=== PATIENT | male | born 1960 | race Caucasian/White ===

== ENCOUNTER → 2018-08-30 22:10 | Outpatient (CLI) | payer MEDICARE, SELFPAY ==
[2018-08-30 22:32] LABS: Microscopic, Urine URINE MICROSCOPIC (MICROSCOPIC)
[2018-08-30 22:36] LABS: Bilirubin,Urine Negative (Negative); Blood, Urine TRACE-I (Negative); Color,Urine YELLOW (Yellow); Glucose,Urine (UA) Negative (Negative); Ketones,Urine Negative (Negative); Leukocyte Esterase,Urine Negative (Negative); Nitrate,Urine Negative (Negative); PH,Urine 5.5 (5.0-8.5); Protein,Urine TRACE (Negative); Specific Gravity, Urine >= 1.030 (1.005-1.030); Urobilinogen,Urine 0.2 EU/dl (0.2)
[2018-08-30 22:41] LABS: Appearance,Urine Turbid (Clear)
[2018-08-30 23:18] LABS: RBC,Urine Occasional #/hpf (0-3); Squamous Epithelial Cell,Urine Occasional #/hpf (0-5)
[2018-08-30 23:19] LABS: Bacteria,Urine 3+ /lpf
== END ==
PROVIDERS: PCP Internal Medicine Adolescent Medicine; Visit Provider Internal Medicine Adolescent Medicine
DX: N39.0 Urinary tract infection, site not specified (principal); B96.20 Unspecified Escherichia coli [E. coli] as the cause of diseases classified elsewhere
CPT/HCPCS: 81001; 87086; 87088; 87186

== ENCOUNTER 2020-12-13 11:53 | Emergency (ER) | payer MEDICARE, MEDICAID, SELFPAY ==
[2020-12-13 11:55] VITALS: BP 84/60; PULSE 89; RESP 15; TEMP 38.3; O2SAT 96
[2020-12-13 11:56] VITALS: BMI 21.5
--- NOTE | 2020-12-13 11:57 | XR_ITS ---
PROCEDURE: XR CHEST PORTABLE CLINICAL HISTORY: fever Smoker COMPARISON: No exams were available for comparison FINDINGS: The cardiomediastinal silhouette and pulmonary vascularity are within normal limits. There multiple left-sided rib fractures. Prior ORIF left clavicle and old left scapular fracture. There is some minimal thickening of the right minor fissure laterally with right basilar area of atelectasis or fibrosis. IMPRESSION: Old left-sided rib fractures, old left scapular fracture. Prior ORIF left clavicle fracture. Minimal right basilar atelectasis or fibrotic change Dictated by: Eduardo wSeet MD 12/13/2020 13:59 Eduardo Sweet MD in [place] 12/13/2020 13:59
--- NOTE | 2020-12-13 12:03 | HMH.EDFEV ---
ED Disposition Clinical Impression: Viral infection Disposition: Home, Self-Care Condition on Discharge: Good Referrals: Luisito Mims MD [Primary Care Provider] - - Critical Care Critical Care Time: No Attestation: On , the high probability of a clinically significant, sudden or life threatening deterioration of the following system(s) required my full and direct attention, intervention and personal management. The time I documented below is in addition to time spent performing reported procedures but includes the following listed in this critical care notation. Medical Decision Making - Medical Records Medical records reviewed: Yes: I reviewed the patient's medical records. - [place] Inquiry Pt receiving controlled substance: No Vital Signs: 12/13/20 11:55 12/13/20 12:25 12/13/20 12:38 Temperature 100.9 F H Temperature Source Rectal Pulse Rate [Radial] 89 72 73 Respiratory Rate 15 16 18 Blood Pressure [Right Arm] 84/60 L 84/60 L 94/55 L Blood Pressure Mean [Right Arm] 68 68 68 Blood Pressure Source [Right Arm] Automatic Cuff Automatic Cuff Blood Pressure Position [Right Arm] Sitting Supine Supine 02 Sat by Pulse Oximetry 96 93 L 95 Oxygen Delivery Method Room Air Room Air Room Air 12/13/20 13:01 Temperature Temperature Source Pulse Rate [Radial] 75 Respiratory Rate 18 Blood Pressure [Right Arm] 88/54 L Blood Pressure Mean [Right Arm] 65 Blood Pressure Source [Right Arm] Automatic Cuff Blood Pressure Position [Right Arm] Supine 02 Sat by Pulse Oximetry 93 L Oxygen Delivery Method Room Air - Lab Data Lab results reviewed: Yes: I reviewed the patient's lab results. Lab Results 12/13/20 11:57: VBG pH 7.36, VBG pCO2 44.6, VBG pO2 44.7 H, VBG HCO3 24.6, VBG Total CO2 26.0, VBG O2 Saturation 81.6 H, VBG Base Excess -0.8 12/13/20 12:10: WBC 12.3 H, RBC 4.76, Hgb 13.7 L, Hct 42.2, MCV 88.7, MCH 28.8, MCHC 32.5, RDW 13.7, Plt Count 228, MPV 7.8, Neut % (Auto) 80.9 H, Lymph % (Auto) 14.3, [place] % (Auto) 3.9, Eos % (Auto) 0.5, Baso % (Auto) 0.3, Neut # (Auto) 10.0 H, Lymph # (Auto) 1.8, [place] # (Auto) 0.5, Eos # (Auto) 0.1, Baso # (Auto) 0.0 12/13/20 12:10: Sodium 136, Potassium 4.7, Chloride 104, Carbon Dioxide 26, Anion Gap 10.7, BUN 15, Creatinine 1.00, Estimated Creat Clear 74, Estimated GFR 76, Est GFR ( Amer) 92, Glucose 117 H, Calcium 9.2, Total Bilirubin 0.9, AST 61 H, ALT 66, Alkaline Phosphatase 63, Total Protein 7.2, Albumin 4.0, Globulin 3.2, Albumin/Globulin Ratio 1.3 12/13/20 12:10: Lactate 1.3 12/13/20 12:10: SARS-CoV-2 IgG Ab (Rapid) Positive A, SARS-CoV-2 IgM Ab (Rapid) Negative 12/13/20 12:10: Procalcitonin 0.140 12/13/20 13:23: Urine Color Yellow, Urine Appearance Clear, Urine pH 7.5, Ur Specific [place] 1.015, Urine Protein Trace, Urine Glucose (UA) Trace, Urine Ketones Negative, Urine Blood Negative, Urine Nitrate Negative, Urine Bilirubin Negative, Urine Urobilinogen 0.2, Ur Leukocyte Esterase Negative, Urine RBC None, Urine WBC Occasional, Ur Squamous Epith Cells Occasional, Urine Bacteria None, Urine Mucus Trace Result diagrams: 12/13/20 12:10 12/13/20 12:10 Orders (Tests/Meds): ED MEDICATIONS Generic Name Dose Route Start Last Admin Trade Name Freq PRN Reason Stop Dose Admin Sodium Chloride 2,190 mls @ 1,095 mls/hr 12/13/20 12:17 12/13/20 12:21 Sod Chlor 0.9% 1000ml Bag 30 ml/kg infuse over 2 hr (2190 ml) 12/13/20 14:16 1,095 mls/hr IV Administration .Q2H ONE Discontinued Medications Generic Name Dose Route Start Last Admin Trade Name Freq PRN Reason Stop Dose Admin Sodium Chloride 1,000 mls @ 999 mls/hr 12/13/20 12:15 12/13/20 12:18 Sod Chlor 0.9% 1000ml Bag IV 12/13/20 13:15 Not Given .Q1H1M ALYCIA ORDERS Category Date Time Status XR chest portable Stat Exams 12/13/20 11:57 Taken Covid-19 Nasal PCR ([facility]) Routine Lab 12/13/20 12:10 Received Blood Culture Stat Micro 12/13/20 12:10 Received - Radiology Data #1
[2020-12-13 12:25] VITALS: BP 84/60; PULSE 72; RESP 16; O2SAT 93
[2020-12-13 12:27] LABS: Basophils % 0.3 % (0.1-2.0); Eosinophils # 0.1 K/mm3 (0.0-0.4); Eosinophils % 0.5 % (0.1-12.0); Hematocrit 42.2 % (42.0-52.0); Hemoglobin 13.7 g/dL (14.1-18.0); Lymphocytes # 1.8 K/mm3 (0.7-4.5); Lymphocytes % 14.3 % (10-50); Mean Corpuscular HGB Conc 32.5 g/dL (31.8-35.4); Mean Corpuscular Hemoglobin 28.8 pg (27.0-31.2); Mean Corpuscular Volume 88.7 fl (80-94); Mean Platelet Volume 7.8 fl (7.4-10.4); Monocytes # 0.5 K/mm3 (0.1-1.0); Monocytes % 3.9 % (1.7-9.3); Neutrophils % 80.9 % (37.0-80.0); Platelet Count 228 K/mm3 (142-424); Red Blood Count 4.76 M/mm3 (4.60-6.20); Red Cell Distribution Width 13.7 % (11.5-17.5); White Blood Count 12.3 K/mm3 (4.8-10.8)
[2020-12-13 12:31] LABS: Alanine Aminotransferase 66 U/L (12-78); Albumin/Globulin Ratio 1.3 (1.1-1.8); Alkaline Phosphatase 63 U/L (38-126); Anion Gap 10.7 mEq/L (5-15); Aspartate Amino Transferase 61 U/L (17-59); Bilirubin,Total 0.9 mg/dl (0.2-1.3); Blood Urea Nitrogen 15 mg/dl (9-20); Calcium 9.2 mg/dl (8.4-10.2); Carbon Dioxide 26 mmol/L (22.0-30.0); Chloride 104 mmol/L (98-107); Creatinine Clearance Estimated 74 mL/min (50-200); Estimated Glomerular Filt Rate 76 ml/min (>60); GFR (African American) 92 ML/MIN (>60); Globulin 3.2 g/dL (1.3-3.2); Glucose 117 mg/dl (74-100); Lactic Acid 1.3 mmol/L (0.7-2.1); Potassium 4.7 mmoL/L (3.5-5.1); Sodium 136 mmol/L (136-145); Total Protein,Serum 7.2 g/dl (6.3-8.2)
[2020-12-13 12:38] VITALS: BP 94/55; PULSE 73; RESP 18; O2SAT 95
[2020-12-13 12:53] LABS: Coronavirus 19 IgG Antibody Positive (Negative); Coronavirus 19 IgM Antibody Negative (Negative)
[2020-12-13 13:00] LABS: VBG Base Excess -0.8 mmol/L (-2.4-2.3); VBG HCO3 24.6 mmol/L (23-30); VBG Oxygen Saturation 81.6 % (50-70); VBG PCO2 44.6 mmol/L (35-51); VBG PH 7.36 mmol/L (7.31-7.41); VBG PO2 44.7 mmol/L (28-40)
[2020-12-13 13:01] VITALS: BP 88/54; PULSE 75; RESP 18; O2SAT 93
[2020-12-13 13:25] LABS: Microscopic, Urine URINE MICROSCOPIC (MICROSCOPIC)
[2020-12-13 13:27] LABS: Appearance,Urine CLEAR (Clear); Bilirubin,Urine Negative (Negative); Blood, Urine Negative (Negative); Color,Urine YELLOW (Yellow); Glucose,Urine (UA) TRACE (Negative); Ketones,Urine Negative (Negative); Leukocyte Esterase,Urine Negative (Negative); Nitrate,Urine Negative (Negative); PH,Urine 7.5 (5.0-8.5); Protein,Urine TRACE (Negative); Specific Gravity, Urine 1.015 (1.005-1.030); Urobilinogen,Urine 0.2 EU/dl (0.2)
[2020-12-13 13:36] LABS: Mucus,Urine Trace /lpf; Squamous Epithelial Cell,Urine Occasional #/hpf (0-5); WBC,Urine Occasional #/hpf (0-3)
[2020-12-13 13:57] VITALS: BP 98/54; PULSE 70; RESP 14; O2SAT 100
--- NOTE | 2020-12-13 14:09 | PC.NURSE ---
called the [facility]
[2020-12-13 14:55] VITALS: BP 111/68; PULSE 78; RESP 16; TEMP 36.6; O2SAT 98
== END 2020-12-13 14:58 | disposition home or self-care (01) ==
PROVIDERS: Emergency Provider Emergency Medicine; PCP Internal Medicine Adolescent Medicine
DX: Z20.822 Contact with and (suspected) exposure to COVID-19 (principal); B34.9 Viral infection, unspecified
CPT/HCPCS: 71045; 80053; 81001; 82803; 83605; 84145; 85025; 86328; 87040; 96365; 96367; 99284; U0003

== ENCOUNTER → 2020-12-14 07:44 | Outpatient (CLI) | payer MEDICARE, MEDICAID, SELFPAY ==
[2020-12-14 08:16] LABS: Basophils % 0.6 % (0.1-2.0); Eosinophils # 0.2 K/mm3 (0.0-0.4); Eosinophils % 2.9 % (0.1-12.0); Hematocrit 35.7 % (42.0-52.0); Lymphocytes # 2.4 K/mm3 (0.7-4.5); Lymphocytes % 38.1 % (10-50); Mean Corpuscular HGB Conc 34.2 g/dL (31.8-35.4); Mean Corpuscular Hemoglobin 29.1 pg (27.0-31.2); Monocytes # 0.3 K/mm3 (0.1-1.0); Monocytes % 4.5 % (1.7-9.3); Neutrophils # 3.4 K/mm3 (1.8-7.8); Neutrophils % 53.9 % (37.0-80.0); Platelet Count 205 K/mm3 (142-424); White Blood Count 6.4 K/mm3 (4.8-10.8)
[2020-12-14 09:42] LABS: Hemoglobin 12.2 g/dL (14.1-18.0)
== END ==
LOC: LAB 07:49 → LAB.DROPOF 12-15 06:57
PROVIDERS: PCP Internal Medicine Adolescent Medicine; Visit Provider Internal Medicine Adolescent Medicine
DX: D72.829 Elevated white blood cell count, unspecified (principal)
CPT/HCPCS: 85025

== ENCOUNTER → 2022-11-08 10:48 | Outpatient (CLI) | payer MEDICARE, MEDICAID, SELFPAY ==
[2022-11-08 11:32] LABS: Alanine Aminotransferase 124 U/L (12-78); Albumin Level 3.5 g/dl (3.5-5.0); Albumin/Globulin Ratio 1.3 (1.1-1.8); Alkaline Phosphatase 65 U/L (38-126); Anion Gap 6.2 mEq/L (5-15); Aspartate Amino Transferase 110 U/L (17-59); Bilirubin,Total 0.6 mg/dl (0.2-1.3); Blood Urea Nitrogen 12 mg/dl (9-20); Calcium 8.3 mg/dl (8.4-10.2); Carbon Dioxide 31 mmol/L (22.0-30.0); Chloride 103 mmol/L (98-107); Estimated Glomerular Filt Rate 97 ml/min (>60); GFR (African American) 118 ML/MIN (>60); Globulin 2.6 g/dL (1.3-3.2); Glucose 110 mg/dl (74-100); Potassium 4.2 mmoL/L (3.5-5.1); Sodium 136 mmol/L (136-145); Total Protein,Serum 6.1 g/dl (6.3-8.2)
== END ==
PROVIDERS: PCP Internal Medicine Adolescent Medicine; Visit Provider Internal Medicine Adolescent Medicine
DX: R94.5 Abnormal results of liver function studies (principal)
CPT/HCPCS: 80053

== ENCOUNTER → 2022-11-25 13:56 | Outpatient (CLI) | payer MEDICARE, MEDICAID, SELFPAY ==
[2022-11-25 14:23] LABS: Basophils # 0.1 K/mm3 (0-0.2); Basophils % 1.7 % (0.1-2.0); Eosinophils # 0.3 K/mm3 (0.0-0.4); Hematocrit 47.1 % (42.0-52.0); Hemoglobin 14.9 g/dL (14.1-18.0); Lymphocytes # 3.6 K/mm3 (0.7-4.5); Lymphocytes % 50.4 % (10-50); Mean Corpuscular HGB Conc 31.7 g/dL (31.8-35.4); Mean Corpuscular Hemoglobin 29.2 pg (27.0-31.2); Mean Corpuscular Volume 92.3 fl (80-94); Mean Platelet Volume 8.3 fl (7.4-10.4); Monocytes # 0.5 K/mm3 (0.1-1.0); Monocytes % 6.9 % (1.7-9.3); Neutrophils # 2.7 K/mm3 (1.8-7.8); Platelet Count 264 K/mm3 (142-424); Red Cell Distribution Width 14.4 % (11.5-17.5); White Blood Count 7.2 K/mm3 (4.8-10.8)
[2022-11-25 14:26] LABS: MANUAL DIFFERENTIAL MANUAL DIFFERENTIAL (MANUAL DIFF)
[2022-11-25 15:04] LABS: Eosinophils % 6 % (0-3); Lymphocytes % 50 % (10-50); Monocytes % 4 % (2-9); Neutrophils % 33 % (42-76); Total Cells Counted 100
[2022-11-25 15:18] LABS: Anisocytosis 1+; Platelet Estimate Normal
[2022-11-25 15:19] LABS: Polychromasia 1+
[2022-11-25 15:44] LABS: Chloride 106 mmol/L (98-107); Potassium 4.6 mmoL/L (3.5-5.1); Sodium 142 mmol/L (136-145)
[2022-11-25 15:46] LABS: Alanine Aminotransferase 216 U/L (12-78); Anion Gap 11.6 mEq/L (5-15); Aspartate Amino Transferase 190 U/L (17-59); Blood Urea Nitrogen 13 mg/dl (9-20); Carbon Dioxide 29 mmol/L (22.0-30.0); Estimated Glomerular Filt Rate 85 ml/min (>60); GFR (African American) 103 ML/MIN (>60)
[2022-11-25 15:47] LABS: Albumin Level 3.9 g/dl (3.5-5.0); Albumin/Globulin Ratio 1.3 (1.1-1.8); Alkaline Phosphatase 78 U/L (38-126); Bilirubin,Direct 0.4 mg/dl (0.0-0.4); Bilirubin,Indirect 0.4 mg/dL (0.0-0.9); Bilirubin,Total 0.8 mg/dl (0.2-1.3); Calcium 8.8 mg/dl (8.4-10.2); Globulin 2.9 g/dL (1.3-3.2); Glucose 114 mg/dl (74-100); Total Protein,Serum 6.8 g/dl (6.3-8.2)
== END ==
PROVIDERS: PCP Nurse Practitioner Family; Visit Provider Nurse Practitioner Family
DX: E78.2 Mixed hyperlipidemia (principal)
CPT/HCPCS: 80053; 82248; 85007; 85025

== ENCOUNTER 2023-01-06 08:35 | Day surgery (SDC) | payer MEDICARE, MEDICAID, SELFPAY ==
[2023-01-06] VITALS (10 sets, daily range): BP systolic 115–161; BP diastolic 56–99; PULSE 69–88; RESP 13–24; TEMP 36.1–43; O2SAT 91–93; BMI 22.9
--- NOTE | 2023-01-06 09:38 | ECG_ITS ---
APPROVED REPORT Exam: Resting ECG HR:95 bpm ECG Measurements Heart Rate 95 AXES KS 177 P 69 QRSd 76 QRS 64 QT 368 T 55 QTc 421 Conclusion SINUS RHYTHM NORMAL ECG UNCONFIRMED REPORT Electronically signed by : Luisito Mims MD 01/07/2023 17:02:51
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
--- NOTE | 2023-01-06 11:23 | EXP.OP.NOTE ---
Date of procedure: 01/06/23 Pre-op Diagnosis:: Symptomatic cholelithiasis Post-op Diagnosis:: Chronic calculus cholecystitis Procedure performed:: Laparoscopic cholecystectomy Surgeon:: Eliezer Gilbert MD Anesthesia: GETStarla Estimated blood loss (mL): 15 Operative findings:: Gallbladder essentially filled with stones Exceptionally thin-walled gallbladder Severe infundibular thickening Operative note:: After informed consent was obtained, the patient was taken to the operating room and placed in the supine position. General anesthesia was induced and the abdomen was prepped and draped in a sterile fashion. After infiltration with local anesthetic an infraumbilical incision was made. A Veress needle was placed in position. The abdomen was insufflated. A 5 mm optical trocar was placed in position. Under direct visualization, a 12 mm trocar was placed in the subxiphoid position and 2 additional 5 mm trocars were placed in the right upper quadrant. The gallbladder was elevated up and over the liver margin. The gallbladder was essentially filled with stones. The gallbladder wall was exceptionally thin. Even minor manipulation created rents to the tissue. Multiple stones were expressed through these rents. The infundibular region was extremely thickened. This in combination with the overall thin-well gallbladder and pericholecystic inflammatory response created increased difficulty dissecting in the region. The decision was made to proceed with transection at the infundibulum with placement of Endoloops after transection with harmonic shani. Harmonic shani were then utilized to dissect the gallbladder away from the liver margin with careful attention to the control of the cystic artery. The gallbladder was placed in a retrieval bag and removed through the subxiphoid trocar site. The right upper quadrant was thoroughly irrigated. Stone forceps were utilized to remove numerous stones; however, some stones were none retrievable. No active bleeding or bile leak was noted. #10 flat Marciano-Carrasco drains were placed in the gallbladder fossa and exited through the right upper quadrant trocar sites. Fascia at the subxiphoid trocar site was reapproximated utilizing the NeoClose device. The remaining trocars were removed. All wounds were irrigated and skin was closed with 4-0 Monocryl in a subcuticular fashion. Steri-Strips were applied. The patient's anesthetic agents were reversed and extubation was completed prior to transfer to recovery in stable condition. Condition: stable Disposition: PACU Specimens:: Gallbladder Complications:: No immediate
--- NOTE | 2023-01-06 11:33 | EXP.ANES.I ---
[facility] Anesthesia Record Part I Anesthesia Record I Intake, IV Amount: 600 Estimated blood loss (mL): 25 Urine output (mL): 0 Blood Pressure: 141/99 SaO2: 92 Pulse Rate: 87 Respiratory Rate: 13 Temperature: 97.3 F Patient is:: Drowsy, Oral/Nasal airway and Stable Stable to PACU at:: 11:31
--- NOTE | 2023-01-06 11:35 | SUR.PHASEI ---
Abdominal binder placed on patient by Bri Ayoub RN and myself w/ Dr. Gilbert's approval to help deter pt from pulling at TETO drains.
--- NOTE | 2023-01-06 12:19 | SUR.PHASEII ---
called report to Brittani YOUNG at [facility]. Verbalized understanding of post op care and stated someone would be up to get patient shortly.
--- NOTE | 2023-01-07 09:38 | EXP.ANES.II ---
[facility] Anesthesia Record Part II Anesthesia Record Part II Discharge Time: 12:01 [address]ination: [facility] PACU nurse assessment reviewed?: Yes Patient Condition:: Good Anesthesia Complications:: None Swallowing reflex intact?: Yes Cyanosis?: No Blood Pressure: 143/79 Pulse Rate: 86 Temperature: 97.2 F Mental Status: Alert & Oriented Pain level:: 0 Nausea and/or vomitting:: None Intake, IV Amount: 1,000
[2023-01-07 09:39] VITALS: BP 143/79; PULSE 86; TEMP 36.2
== END 2023-01-06 12:50 | disposition home or self-care (01) ==
PROVIDERS: PCP Nurse Practitioner Family; Visit Provider Surgery
PROC: 0FT44ZZ Resection of Gallbladder, Percutaneous Endoscopic Approach (ICD-10-PCS; CPT 47562; principal; 2023-01-06 09:45)
DX: K80.10 Calculus of gallbladder with chronic cholecystitis without obstruction (principal); Z79.899 Other long term (current) drug therapy
CPT/HCPCS: 47562; 88304; 93005; 96374; J2405

== ENCOUNTER → 2023-01-12 13:31 | Outpatient (CLI) | payer MEDICARE, MEDICAID, SELFPAY ==
[2023-01-12 15:17] LABS: Anion Gap 14.2 mEq/L (5-15); Blood Urea Nitrogen 17 mg/dl (9-20); Calcium 8.7 mg/dl (8.4-10.2); Carbon Dioxide 20 mmol/L (22.0-30.0); Chloride 105 mmol/L (98-107); Estimated Glomerular Filt Rate 85 ml/min (>60); GFR (African American) 103 ML/MIN (>60); Glucose 100 mg/dl (74-100); Potassium 5.2 mmoL/L (3.5-5.1); Sodium 134 mmol/L (136-145)
[2023-01-12 15:24] LABS: Basophils # 0.1 K/mm3 (0-0.2); Basophils % 0.8 % (0.1-2.0); Eosinophils # 0.4 K/mm3 (0.0-0.4); Eosinophils % 4.3 % (0.1-12.0); Hematocrit 48.4 % (42.0-52.0); Hemoglobin 15.7 g/dL (14.1-18.0); Lymphocytes # 3.3 K/mm3 (0.7-4.5); Lymphocytes % 38.9 % (10-50); Mean Corpuscular HGB Conc 32.5 g/dL (31.8-35.4); Mean Corpuscular Hemoglobin 28.8 pg (27.0-31.2); Mean Corpuscular Volume 88.5 fl (80-94); Mean Platelet Volume 8.5 fl (7.4-10.4); Monocytes # 0.6 K/mm3 (0.1-1.0); Monocytes % 6.7 % (1.7-9.3); Neutrophils # 4.2 K/mm3 (1.8-7.8); Neutrophils % 49.3 % (37.0-80.0); Platelet Count 318 K/mm3 (142-424); Red Blood Count 5.47 M/mm3 (4.60-6.20); Red Cell Distribution Width 13.9 % (11.5-17.5); White Blood Count 8.5 K/mm3 (4.8-10.8)
== END ==
PROVIDERS: PCP Emergency Medicine; Visit Provider Surgery
DX: K80.20 Calculus of gallbladder without cholecystitis without obstruction (principal); B34.9 Viral infection, unspecified
CPT/HCPCS: 36415; 80048; 85025

== ENCOUNTER → 2023-01-19 13:50 | Outpatient (CLI) | payer MEDICARE, MEDICAID, SELFPAY ==
[2023-01-19 14:39] LABS: Chloride 101 mmol/L (98-107); Potassium 4.3 mmoL/L (3.5-5.1); Sodium 137 mmol/L (136-145)
[2023-01-19 14:42] LABS: Alanine Aminotransferase 118 U/L (12-78); Albumin/Globulin Ratio 1.2 (1.1-1.8); Alkaline Phosphatase 78 U/L (38-126); Anion Gap 11.3 mEq/L (5-15); Aspartate Amino Transferase 99 U/L (17-59); Bilirubin,Total 0.8 mg/dl (0.2-1.3); Blood Urea Nitrogen 12 mg/dl (9-20); Calcium 8.9 mg/dl (8.4-10.2); Carbon Dioxide 29 mmol/L (22.0-30.0); Estimated Glomerular Filt Rate 85 ml/min (>60); GFR (African American) 103 ML/MIN (>60); Globulin 3.3 g/dL (1.3-3.2); Glucose 107 mg/dl (74-100); Total Protein,Serum 7.3 g/dl (6.3-8.2)
--- NOTE | 2023-01-19 14:46 | XR_ITS ---
FINAL REPORT CLINICAL HISTORY: Checking for FB, evaluating drain tube from gallbladder removal, fdc not sure if got pulled out.,patient returning to doc office to await reading FINDINGS: A single view of the abdomen was obtained. There is a 42 mm radiodensity in the left pelvis consistent with a foreign body. It is uncertain if it is on or in the patient. IMPRESSION: 42 mm radiodensity in left pelvis consistent with a foreign body. Uncertain if it is in or on the patient. Reviewed, Interpreted and Dictated by Armond Cheema III, MD Transcribed by Lizett Britton Authenticated and [facility]
== END ==
PROVIDERS: PCP Internal Medicine Adolescent Medicine; Visit Provider Surgery
DX: R74.01 Elevation of levels of liver transaminase levels (principal)
CPT/HCPCS: 36415; 74018; 80053

== ENCOUNTER → 2023-01-26 13:17 | Outpatient (CLI) | payer MEDICARE, MEDICAID, SELFPAY ==
--- NOTE | 2023-01-26 13:20 | XR_ITS ---
FINAL REPORT CLINICAL HISTORY: possible FB COMPARISON: 01/19/2023 FINDINGS: ABDOMEN SINGLE VIEW / KUB A single view of the abdomen was obtained with a coned down view of the pelvis. There is a nonobstructive bowel gas pattern. There is a moderate amount of retained stool, worst in the rectum. Foreign body overlying the pelvis on the prior exam is not seen on the current study. Vascular calcifications are present. IMPRESSION: No foreign body identified on this study. Reviewed, Interpreted and Dictated by Armond Cheema III, MD Transcribed by Sana Luo Authenticated and [facility]
== END ==
PROVIDERS: PCP Emergency Medicine; Visit Provider Surgery
DX: R74.01 Elevation of levels of liver transaminase levels (principal)
CPT/HCPCS: 74018

== ENCOUNTER → 2023-07-13 08:44 | Outpatient (CLI) | payer MEDICARE, MEDICAID, SELFPAY ==
[2023-07-13 08:58] LABS: Microscopic, Urine URINE MICROSCOPIC (MICROSCOPIC)
[2023-07-13 09:07] LABS: Basophils # 0.1 K/mm3 (0-0.2); Basophils % 1.3 % (0.1-2.0); Eosinophils # 0.3 K/mm3 (0.0-0.4); Eosinophils % 4.2 % (0.1-12.0); Hematocrit 43.3 % (42.0-52.0); Hemoglobin 15.2 g/dL (14.1-18.0); Lymphocytes # 3.1 K/mm3 (0.7-4.5); Lymphocytes % 52.6 % (10-50); Mean Corpuscular Hemoglobin 31.4 pg (27.0-31.2); Mean Corpuscular Volume 89.7 fl (80-94); Mean Platelet Volume 7.8 fl (7.4-10.4); Monocytes # 0.4 K/mm3 (0.1-1.0); Monocytes % 7.2 % (1.7-9.3); Neutrophils # 2.1 K/mm3 (1.8-7.8); Neutrophils % 34.7 % (37.0-80.0); Platelet Count 225 K/mm3 (142-424); Red Blood Count 4.82 M/mm3 (4.60-6.20)
[2023-07-13 09:12] LABS: MANUAL DIFFERENTIAL MANUAL DIFFERENTIAL (MANUAL DIFF)
[2023-07-13 09:18] LABS: Appearance,Urine CLEAR (Clear); Bilirubin,Urine Negative (Negative); Blood, Urine 1+ (Negative); Color,Urine YELLOW (Yellow); Glucose,Urine (UA) Negative (Negative); Ketones,Urine Negative (Negative); Leukocyte Esterase,Urine Negative (Negative); Nitrate,Urine Negative (Negative); Protein,Urine Negative (Negative); Specific Gravity, Urine >= 1.030 (1.005-1.030); Urobilinogen,Urine 0.2 EU/dl (0.2)
[2023-07-13 09:48] LABS: Anion Gap 9.7 mEq/L (5-15); Blood Urea Nitrogen 11 mg/dl (9-20); Calcium 8.8 mg/dl (8.4-10.2); Carbon Dioxide 30 mmol/L (22.0-30.0); Chloride 101 mmol/L (98-107); Estimated Glomerular Filt Rate 85 ml/min (>60); GFR (African American) 103 ML/MIN (>60); Glucose 118 mg/dl (74-100); Potassium 4.7 mmoL/L (3.5-5.1); Sodium 136 mmol/L (136-145)
[2023-07-13 10:09] LABS: Bacteria,Urine Trace /lpf; Mucus,Urine Trace /lpf; Squamous Epithelial Cell,Urine Occasional #/hpf (0-5)
[2023-07-13 12:11] LABS: Eosinophils % 3 % (0-3); Lymphocytes % 55 % (10-50); Monocytes % 6 % (2-9); Neutrophils % 36 % (42-76); Platelet Estimate Normal; RBC Morphology Normal; Total Cells Counted 100
== END ==
PROVIDERS: PCP Internal Medicine Adolescent Medicine; Visit Provider Internal Medicine Adolescent Medicine
DX: R26.81 Unsteadiness on feet (principal); Z79.899 Other long term (current) drug therapy
CPT/HCPCS: 80048; 81001; 85007; 85025

== ENCOUNTER 2023-12-03 07:25 | Outpatient (CLI) | payer MEDICARE, MEDICAID, SELFPAY ==
[2023-12-03 08:42] LABS: Basophils # 0.1 K/mm3 (0-0.2); Basophils % 0.8 % (0.1-2.0); Eosinophils # 0.2 K/mm3 (0.0-0.4); Eosinophils % 2.3 % (0.1-12.0); Hemoglobin 14.9 g/dL (14.1-18.0); Lymphocytes # 3.6 K/mm3 (0.7-4.5); Lymphocytes % 36.9 % (10-50); Mean Corpuscular HGB Conc 32.3 g/dL (31.8-35.4); Mean Corpuscular Hemoglobin 30.5 pg (27.0-31.2); Mean Corpuscular Volume 94.4 fl (80-94); Mean Platelet Volume 8.3 fl (7.4-10.4); Monocytes # 0.6 K/mm3 (0.1-1.0); Monocytes % 5.9 % (1.7-9.3); Neutrophils # 5.3 K/mm3 (1.8-7.8); Neutrophils % 54.1 % (37.0-80.0); Platelet Count 231 K/mm3 (142-424); Red Blood Count 4.87 M/mm3 (4.60-6.20); Red Cell Distribution Width 14.1 % (11.5-17.5); White Blood Count 9.8 K/mm3 (4.8-10.8)
[2023-12-03 08:47] LABS: Alanine Aminotransferase 93 U/L (12-78); Albumin Level 3.4 g/dl (3.5-5.0); Albumin/Globulin Ratio 1.4 (1.1-1.8); Alkaline Phosphatase 66 U/L (38-126); Anion Gap 9.5 mEq/L (5-15); Aspartate Amino Transferase 60 U/L (17-59); Bilirubin,Total 0.9 mg/dl (0.2-1.3); Blood Urea Nitrogen 17 mg/dl (9-20); Calcium 9.1 mg/dl (8.4-10.2); Carbon Dioxide 29 mmol/L (22.0-30.0); Chloride 103 mmol/L (98-107); Estimated Glomerular Filt Rate 85 ml/min (>60); GFR (African American) 102 ML/MIN (>60); Globulin 2.5 g/dL (1.3-3.2); Glucose 117 mg/dl (74-100); Potassium 4.5 mmoL/L (3.5-5.1); Sodium 137 mmol/L (136-145); Total Protein,Serum 5.9 g/dl (6.3-8.2)
== END 2023-12-03 23:59 ==
PROVIDERS: PCP Internal Medicine Adolescent Medicine; Visit Provider Internal Medicine Adolescent Medicine
DX: I10 Essential (primary) hypertension; K21.9 Gastro-esophageal reflux disease without esophagitis
CPT/HCPCS: 80053; 85025

== ENCOUNTER 2023-12-17 10:00 | Outpatient (CLI) | payer MEDICARE, MEDICAID, SELFPAY ==
[2023-12-17 12:12] LABS: Alanine Aminotransferase 141 U/L (12-78); Albumin Level 3.7 g/dl (3.5-5.0); Albumin/Globulin Ratio 1.4 (1.1-1.8); Alkaline Phosphatase 57 U/L (38-126); Anion Gap 9.5 mEq/L (5-15); Aspartate Amino Transferase 123 U/L (17-59); Bilirubin,Total 0.9 mg/dl (0.2-1.3); Blood Urea Nitrogen 15 mg/dl (9-20); Calcium 9.1 mg/dl (8.4-10.2); Carbon Dioxide 30 mmol/L (22.0-30.0); Chloride 103 mmol/L (98-107); Estimated Glomerular Filt Rate 85 ml/min (>60); GFR (African American) 102 ML/MIN (>60); Globulin 2.7 g/dL (1.3-3.2); Glucose 122 mg/dl (74-100); Potassium 4.5 mmoL/L (3.5-5.1); Sodium 138 mmol/L (136-145); Total Protein,Serum 6.4 g/dl (6.3-8.2)
== END 2023-12-17 23:59 ==
PROVIDERS: PCP Internal Medicine Adolescent Medicine; Visit Provider Internal Medicine Adolescent Medicine
DX: R10.13 Epigastric pain (principal); J44.9 Chronic obstructive pulmonary disease, unspecified
CPT/HCPCS: 80053

== ENCOUNTER 2023-12-18 11:10 | Outpatient (CLI) | payer MEDICARE, MEDICAID, SELFPAY ==
[2023-12-18 13:20] LABS: Ferritin 463 ng/ml (17.9-464)
[2023-12-20 08:46] LABS: Hep A Ab, IGM Indeterminate
[2023-12-20 08:47] LABS: HBsAg Screen Negative; HCV Ab Non Reactive; Hep B Core Ab, IgM Negative
== END 2023-12-18 23:59 ==
PROVIDERS: PCP Internal Medicine Adolescent Medicine; Visit Provider Internal Medicine Adolescent Medicine
DX: R10.13 Epigastric pain; R74.8 Abnormal levels of other serum enzymes
CPT/HCPCS: 80074; 82728

== ENCOUNTER 2023-12-26 08:37 | Outpatient (CLI) | payer MEDICARE, MEDICAID, SELFPAY ==
--- NOTE | 2023-12-26 08:41 | US_ITS ---
FINAL REPORT TECHNIQUE: Sonographic images of the right upper quadrant were obtained. CLINICAL HISTORY: ABNORMAL LIVER ENZYMES FINDINGS: PANCREAS: Unremarkable. LIVER: Fatty infiltrated.. No focal hepatic lesion. No intrahepatic biliary ductal dilatation. GALLBLADDER: The gallbladder appears partially contracted around gallstones. No gallbladder wall thickening or pericholecystic fluid. COMMON DUCT: 3 mm. Normal for age. RIGHT KIDNEY: The right kidney measures 7.9 cm. There is no hydronephrosis, mass, or stone. There is cortical thinning. FREE FLUID: None. IMPRESSION: Fatty liver. Gallstone. Right renal cortical thinning. Reviewed, Interpreted and Dictated by Giovanna Wallace MD Transcribed by Debbie Cordova Authenticated and [facility]
== END 2023-12-26 23:59 ==
LOC: RAD 08:37
PROVIDERS: PCP Nurse Practitioner Family; Visit Provider Nurse Practitioner Family
DX: R74.8 Abnormal levels of other serum enzymes (principal)
CPT/HCPCS: 76705

== ENCOUNTER 2023-12-27 19:34 | Outpatient (CLI) | payer MEDICARE, MEDICAID, SELFPAY ==
[2023-12-29 10:59] LABS: Hep A Ab, Total Positive (Negative)
== END 2023-12-27 23:59 ==
PROVIDERS: PCP Internal Medicine Adolescent Medicine; Visit Provider Internal Medicine Adolescent Medicine
DX: R94.5 Abnormal results of liver function studies (principal)
CPT/HCPCS: 86708

== ENCOUNTER 2024-09-28 04:01 | Observation (INO) | payer MEDICARE, MEDICAID, SELFPAY ==
[2024-09-28] VITALS (7 sets, daily range): BP systolic 113–161; BP diastolic 55–96; PULSE 93–125; RESP 15–22; TEMP 36.6–36.7; O2SAT 88–95; BMI 17.2; BMI 17.0
--- NOTE | 2024-09-28 04:19 | CT_ITS ---
PROCEDURE INFORMATION: Exam: CT Head Without Contrast Exam date and time: 09/28/2024 4:41 AM Age: 63 years old Clinical indication: Altered mental status/memory loss; Additional info: AMS TECHNIQUE: Imaging protocol: Computed tomography of the head without contrast. Radiation optimization: All CT scans at this facility use at least one of these dose optimization techniques: automated exposure control; mA and/or kV adjustment per patient size (includes targeted exams where dose is matched to clinical indication); or iterative reconstruction. COMPARISON: No relevant prior studies available. FINDINGS: Brain: No acute infarct, hemorrhage, mass, or mass effect. Severe chronic white matter microvascular ischemic change. Moderate brain parenchymal atrophy with compensatory widening of the ventricles and sulci. Cerebral ventricles: Persistent cavum septum pellucidum. Normal variant. No further follow-up needed. Paranasal sinuses: Visualized sinuses are unremarkable. No fluid levels. Mastoid air cells: Bones: Moderate thickening in the left mastoid air cells, with reactive sclerosis in the mastoid air cells suggesting chronicity. Soft tissue fullness around the ear ossicles and in the middle ear canal. Soft tissues: Unremarkable. IMPRESSION: 1. No acute infarct, hemorrhage, mass, or mass effect. Severe chronic white matter microvascular ischemic change. 2. Moderate thickening in the left mastoid air cells, with reactive sclerosis in the mastoid air cells suggesting chronicity. Soft tissue fullness around the ear ossicles and in the middle ear canal. Chronic otomastoiditis suspected. Cholesteatoma not excluded. Recommend ENT consult. Outpatient temporal bone/IAC CT can be considered for complete evaluation. Paranasal sinuses and right mastoid air cells are clear.
--- NOTE | 2024-09-28 04:19 | XR_ITS ---
PROCEDURE INFORMATION: Exam: XR Chest Exam date and time: 09/28/2024 4:28 AM Age: 63 years old Clinical indication: Other: AMS TECHNIQUE: Imaging protocol: Radiologic exam of the chest. Views: 1 view. COMPARISON: CR XR CHEST PORTABLE 12/13/2020 12:16 PM FINDINGS: Lungs: The lungs are clear. Pleural spaces: Unremarkable. No pleural effusion. No pneumothorax. Heart/Mediastinum: Upper mediastinum is widened. Lower mediastinum is unremarkable. Heart size is unremarkable. Recommend correlation. Please refer to CT if recently obtained. Bones/joints: Plate and screw fixation of the left clavicular shaft. No evidence of hardware complication. Remote, healed fractures of the left glenoid, multiple left upper lateral ribs. Robust osteophyte formation left inferior glenoid. No worrisome lytic or blastic osseous lesion. IMPRESSION: 1. The lungs are clear. 2. Upper mediastinum is widened. Lower mediastinum is unremarkable. Heart size is unremarkable. Recommend correlation. Please refer to CT if recently obtained.
[2024-09-28] MEDS: LACTATED RINGERS 1000ML 1,000 ML 999 ML IV (04:31)
[2024-09-28] MEDS: LORazepam 2MG/ML VIAL 1 MG IV (04:31)
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
--- NOTE | 2024-09-28 04:37 | CT_ITS ---
PROCEDURE INFORMATION: Exam: CT Chest With Contrast; Diagnostic Exam date and time: 09/28/2024 4:48 AM Age: 63 years old Clinical indication: Shortness of breath; Additional info: Tachy, diminshed R breath sounds TECHNIQUE: Imaging protocol: Diagnostic computed tomography of the chest with contrast. Radiation optimization: All CT scans at this facility use at least one of these dose optimization techniques: automated exposure control; mA and/or kV adjustment per patient size (includes targeted exams where dose is matched to clinical indication); or iterative reconstruction. Contrast material: ISOVUE; Contrast volume: 75 ml; Contrast route: IV; COMPARISON: CR XR CHEST PORTABLE 09/28/2024 4:28 AM FINDINGS: Lungs: Mass involves the medial left lower lobe. Multiple small nodules in the superior portion of the left lower lobe, measuring up to 1.7 x 2.0 cm axial. Subtle patchy ground-glass opacities in the right lower lobe (for example image 49 series 3) are nonspecific. May be infectious or inflammatory. Metastatic disease not excluded. Pleural spaces: Unremarkable. No pneumothorax. No pleural effusion. Heart: Normal heart size. Small pericardial fluid. Lymph nodes: Unremarkable. No enlarged lymph nodes. Vasculature: No large or central pulmonary embolus. Large heterogeneous mass in the left mediastinum surrounds the aortic arch, occupies the AP window and left hilum, with encasement and mild narrowing of the left pulmonary artery and left mainstem bronchus. The mass encases the posterior mediastinum/subcarinal space from superior to inferior. In the lower portion, indistinguishable from the esophagus. Possible primary esophageal malignancy. Recommend clinical correlation. Liver: Moderate hepatic steatosis. Adrenal glands: Left adrenal gland mass measuring 2.7 x 0.5 cm axial. Kidneys: Partially seen right kidney is unremarkable. Bones/joints: Partially seen plate and screw fixation of remote, healed left clavicular shaft fracture. Remote, healed fracture of the left clavicle with large heterotopic ossification in the anterior and less prominently posterior inferior glenoid. Remote, healed fractures of the left posterior 2nd, 3rd, 5th, 6 posterior and left lateral 3rd-6th ribs. No soft tissue abnormality. Lobulated exophytic mass arising from the posterior cortex of the left interpolar region measuring approximately 5.2 x 3.6 cm axial. Soft tissues: See Bones/joints finding. IMPRESSION: 1. Large heterogeneous mass in the left thoracic and midline posterior mediastinum . Surrounds the proximal descending thoracic aorta, occupies the AP window and left hilum, with encasement and mild narrowing of the left pulmonary artery and left mainstem bronchus. The mass encases the posterior mediastinum/subcarinal space from superior to inferior. In the lower portion, indistinguishable from the esophagus. Possible primary esophageal malignancy. Recommend clinical correlation. 2. Lobulated exophytic mass arising from the posterior cortex of the left kidney interpolar region measuring approximately 5.2 x 3.6 cm axial. Worrisome for retroperitoneal malignancy until proven otherwise. Recommend dedicated CT abdomen and pelvis for complete evaluation unless recently performed. 3. Left adrenal gland mass measuring 2.7 x 0.5 cm axial. Worrisome for metastatic disease until proven otherwise. 4. Multiple small nodules in the superior portion of the left lower lobe, measuring up to 1.7 x 2.0 cm axial. Worrisome for metastatic disease. 5. Subtle patchy ground-glass opacities in the right lower lobe are nonspecific. May be infectious or inflammatory. Metastatic disease not excluded.
[2024-09-28 04:44] LABS: Hematocrit 53.9 % (42.0-52.0); Hemoglobin 17.8 g/dL (14.1-18.0); Mean Corpuscular Hemoglobin 28.3 pg (27.0-31.2); Mean Corpuscular Volume 85.8 fl (80-94); Red Blood Count 6.28 M/mm3 (4.60-6.20); VBG Base Excess -1.1 mmol/L (-2.4-2.3); VBG HCO3 25.3 mmol/L (23-30); VBG Oxygen Saturation 61.3 % (50-70); VBG PCO2 52.7 mmol/L (35-51); VBG PO2 34.7 mmol/L (28-40); White Blood Count 15.6 K/mm3 (4.8-10.8)
[2024-09-28 04:45] LABS: Basophils # 0.1 K/mm3 (0-0.2); Basophils % 0.4 % (0.1-2.0); Eosinophils % 0.1 % (0.1-12.0); Lymphocytes # 1.3 K/mm3 (0.7-4.5); MANUAL DIFFERENTIAL MANUAL DIFFERENTIAL (MANUAL DIFF); Mean Platelet Volume 10.1 fl (7.4-10.4); Monocytes # 1.1 K/mm3 (0.1-1.0); Monocytes % 6.8 % (1.7-9.3); Neutrophils # 13.1 K/mm3 (1.8-7.8); Neutrophils % 84.2 % (37.0-80.0); Platelet Count 515 K/mm3 (142-424); Red Cell Distribution Width 14.6 % (11.5-17.5)
[2024-09-28 04:48] LABS: Lactate Venous 5.5 mmol/L (0.4-2.0)
[2024-09-28 04:50] LABS: Alanine Aminotransferase 65 U/L (12-78); Albumin Level 5.1 g/dl (3.5-5.0); Albumin/Globulin Ratio 1.3 (1.1-1.8); Alkaline Phosphatase 87 U/L (38-126); Anion Gap 20.2 mEq/L (5-15); Aspartate Amino Transferase 97 U/L (17-59); Bilirubin,Total 2.1 mg/dl (0.2-1.3); Blood Urea Nitrogen 53 mg/dl (9-20); Calcium 11.1 mg/dl (8.4-10.2); Carbon Dioxide 29 mmol/L (22.0-30.0); Chloride 110 mmol/L (98-107); Creatinine Clearance Estimated 28 mL/min (50-200); Estimated Glomerular Filt Rate 34 ml/min (>60); GFR (African American) 41 ML/MIN (>60); Globulin 3.8 g/dL (1.3-3.2); Glucose 149 mg/dl (74-100); Potassium 4.2 mmoL/L (3.5-5.1); Total Protein,Serum 8.9 g/dl (6.3-8.2)
[2024-09-28 04:56] LABS: Sodium 155 mmol/L (136-145)
--- NOTE | 2024-09-28 04:56 | PC.NURSE ---
Critical result received from Cleo in lab. Patient sodium 155. aware
[2024-09-28] MEDS: IOPAMIDOL-370 (76%);100ML BOTTLE 75 ML IV (04:59)
[2024-09-28] MEDS: GABAPENTIN 100MG CAPSULE 400 MG PO (04:59)
[2024-09-28] MEDS: SODIUM CHLORIDE 0.9% 10ML SYR (RAD ONLY) 10 ML IV (04:59)
[2024-09-28 05:09] LABS: Lymphocytes % 9 % (10-50); Neutrophils % 89 % (42-76); Total Cells Counted 100
[2024-09-28 05:10] LABS: RBC Morphology Normal
[2024-09-28 05:17] LABS: INR 1.07 (0.9-1.1); Prothrombin Time 11.9 seconds (10.1-12.5)
[2024-09-28 05:46] LABS: HIV Combo NEGATIVE (Negative)
[2024-09-28 06:10] LABS: Sodium 146 mmol/L (136-145)
--- NOTE | 2024-09-28 06:29 | PC.NURSE ---
[facility] supervisor informed of bed request for patient admission.
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
--- NOTE | 2024-09-28 06:46 | PC.NURSE ---
Report called to HANNAH Martines
--- NOTE | 2024-09-28 06:58 | PC.NURSE ---
Patient arrived to floor via stretcher from ED at 06:57.
--- NOTE | 2024-09-28 08:13 | P.CONPHA_ITS ---
Pharmacy Intervention Comments: MEDICATION RECONCILIATION COMPLETED ON PATIENT USING MAR FROM [facility]. -LIANA PATTON, TOMMYD
--- NOTE | 2024-09-28 08:13 | HMH.PHAINT1 ---
Pharmacy Intervention Comments: MEDICATION RECONCILIATION COMPLETED ON PATIENT USING MAR FROM [facility]. -LIANA PATTON, TOMMYD
[2024-09-28 08:21] LABS: Coronavirus 19, PCR Not Detected (NotDetected); Influenza A, PCR Not Detected (NotDetected); Influenza B, PCR Not Detected (NotDetected); Respiratory Syncytial Virus Not Detected (NotDetected)
--- NOTE | 2024-09-28 08:31 | DIET.NUTRFU ---
Addendum entered by Anny Melendez RD, REGGIE 09/28/24 13:47: [employer] was ordered to [facility], will follow-up with recommendations Addendum entered by Anny Melendez RD, REGGIE 09/28/24 11:31: Nursing reported he did not eat any breakfast, still refusing pills. Nurse spoke to and confirmed patient does not want feeding tube and is a DNR/DNI. Provider to review plan of care possible hospice Original Note: Spoke with nurse at this morning. Diet at was MSOFT ground with thin liquids. Poor intake over the last 2-3 weeks, refusing pills. Normally takes pills in applesauce. He does not like assistance with meals, prefers to fed himself and will push the food away when attempting to fed per NH. He is nonverbal at baseline but able to answer yes or no questions. Wt hx from NH indicates weight loss of 20# since March, 14% weight loss. This is significant triggering him for S-PCM. Supplements were added, will monitor meal intake could also fortify food items that he likes. NH home also indicated he is incontinent of B/B and skin is intact
[2024-09-28 08:46] LABS: Reflex Lactic Add Lactic Reflex
[2024-09-28] MEDS: CEFTRIAXONE SODIUM 1 GM in 0.9 % SODIUM CHLORIDE 50 ML IV (09:11)
[2024-09-28] MEDS: LACTATED RINGERS 1000ML 1,000 ML 100 ML IV (10:10)
[2024-09-28] MEDS: DOXYCYCLINE HYCLATE 100 MG in 0.9 % SODIUM CHLORIDE 250 ML 166.667 MG IV ×2 (10:12→20:41)
[2024-09-28 10:45] LABS: Lactic Acid Follow Up (RFLX 1) 2.2 mmol/L (0.7-2.1)
[2024-09-28] MEDS: ENOXAPARIN 30MG/0.3ML SYRINGE 30 MG SUBCUT (11:10)
[2024-09-28] MEDS: IPRATROPIUM/ALBUTEROL 3 ML NEB IH (11:23)
[2024-09-28] MEDS: SODIUM CHLORIDE 3% 15ML NEB 3 ML IH (11:23)
[2024-09-28 11:51] LABS: Human Rhinovirus Not Detected (NotDetected)
[2024-09-28 12:26] LABS: Reflex Lactic (2 hrs) Add Lactic Reflex
[2024-09-28] MEDS: PROPRANOLOL 20MG TAB 20 MG PO ×2 (12:54→20:17)
--- NOTE | 2024-09-28 15:15 | SW/DCPLANNER ---
Patient ICF level of care at [facility]. had discussion with regarding Hospice care and they are not interested at this time. Nasima states patient may return to [facility] when medically stable.
[2024-09-28 16:37] LABS: Anion Gap 9.8 mEq/L (5-15); Blood Urea Nitrogen 52 mg/dl (9-20); Calcium 9.6 mg/dl (8.4-10.2); Carbon Dioxide 31 mmol/L (22.0-30.0); Chloride 115 mmol/L (98-107); Creatinine Clearance Estimated 43 mL/min (50-200); Estimated Glomerular Filt Rate 55 ml/min (>60); GFR (African American) 67 ML/MIN (>60); Glucose 97 mg/dl (74-100); Potassium 3.8 mmoL/L (3.5-5.1)
[2024-09-28 16:48] LABS: Sodium 152 mmol/L (136-145)
--- NOTE | 2024-09-28 17:02 | EXP.EVENT.NO ---
Advance care planning note: Active diagnosis: History of traumatic brain injury, futile to eat, severe protein calorie malnutrition, hypernatremia, acute renal failure, altered mental status The patient's active diagnoses are of sufficient risk that focused discussion on advanced care planning is indicated in order to allow the patient to thoughtfully consider personal goals of care; and, if situations arise that prevent the ability to personally give input, to ensure appropriate representation of their personal desires through documentation or informed surrogate decision makers. Discussion: Persons present and participating in discussion: Patient's , patient, case management, myself Discussion: Discussed patient's decline. is adamant she wants to focus on comfort and quality. She is not interested in a feeding tube. Discussed that his refusal to eat complicates his ability to go back to his shelter. She states understanding. Would like to address acute issues if at all possible but wants to make him comfortable. Discussed options such as hospice if he continues to refuse intake as he will develop dehydration, renal failure, hypernatremia again. She states understanding. Interested in considering this. He has been on hospice in the past for suppose it stomach cancer but was discharged from hospice. This was 3 to 4 years prior. Would like to think about goals pending his response to current treatment. Continue to keep patient DNR/DNI. Time spent: Total time spent [id number] in education and discussion directly related to advance care plannin minutes
[2024-09-28] MEDS: DEXTROSE 5 % IN WATER 1,000 ML 75 ML IV (18:30)
[2024-09-28 18:33] LABS: Microscopic, Urine URINE MICROSCOPIC (MICROSCOPIC)
[2024-09-28 18:47] LABS: Appearance,Urine CLEAR (Clear); Bilirubin,Urine Negative (Negative); Blood, Urine Negative (Negative); Color,Urine DARK YELLOW (Yellow); Glucose,Urine (UA) Negative (Negative); Ketones,Urine Negative (Negative); Leukocyte Esterase,Urine Negative (Negative); Nitrate,Urine Negative (Negative); Protein,Urine TRACE (Negative)
--- NOTE | 2024-09-28 19:36 | PC.NURSE ---
PT IS RESTING IN BED. ALERT TO SELF ONLY. NONVERBAL. PT WILL SHAKE HIS HEAD TO SIMPLE YES OR NO QUESTIONS AND WILL FOLLOW SIMPLE COMMANDS ON OCCASION. 2 LOOSE BOWEL MOVEMENTS THIS SHIFT. IT TAKES SEVERAL NURSING STAFF MEMBERS TO CHANGE AND CLEAN PT DUE TO PT BEING COMBATIVE. LUNG SOUNDS CLEAR. ABDOMEN SOFT/NON TENDER WITH ACTIVE BOWEL SOUNDS. PT REFUSED EATING AND TAKING MORNING MEDS HOWEVER PT DID DRINK 2 CHOCOLATE ENSURES THIS AFTERNOON WHEN HIS SISTER CAME TO VISIT. VSS. WILL CONTINUE TO MONITOR.
[2024-09-28 19:47] LABS: Bacteria,Urine Trace /lpf; WBC,Urine Occasional #/hpf (0-3)
[2024-09-28] MEDS: clonazePAM 1MG TABLET 1 MG PO (20:15)
[2024-09-28] MEDS: PANTOPRAZOLE 40MG TABLET 40 MG PO (20:17)
[2024-09-28] MEDS: QUETIAPINE 100MG TABLET 100 MG PO (20:18)
[2024-09-28] MEDS: MIRTAZAPINE 15 MG TABLET 7.5 MG PO (20:18)
--- NOTE | 2024-09-28 22:56 | PC.NURSE ---
report given to HANNAH Zuñiga at this time.
--- NOTE | 2024-09-29 01:56 | EXP.EVENT.NO ---
Nursing reported that patient quite agitated sometime combative., Having stools burning in the round preventing the staff from cleaning him up easily., exam, patient definitely confused with dementia. Was able to go to sleep later on it has been resting for a couple of hours plan Home medications has been gone through behavioral medications have been restarted
[2024-09-29 04:00] VITALS: BP 105/67; PULSE 105; RESP 20; TEMP 36.7; O2SAT 96; BMI 17.0
[2024-09-29 08:00] VITALS: BP 120/73; PULSE 86; RESP 17; TEMP 36.6; O2SAT 96
[2024-09-29 08:44] LABS: Lactic Acid 1.9 mmol/L (0.7-2.1)
[2024-09-29 08:54] LABS: Basophils # 0.1 K/mm3 (0-0.2); Basophils % 0.9 % (0.1-2.0); Eosinophils # 0.2 K/mm3 (0.0-0.4); Eosinophils % 1.3 % (0.1-12.0); Hematocrit 43.2 % (42.0-52.0); Hemoglobin 14.2 g/dL (14.1-18.0); Lymphocytes % 16.3 % (10-50); Mean Corpuscular HGB Conc 32.9 g/dL (31.8-35.4); Mean Corpuscular Hemoglobin 28.8 pg (27.0-31.2); Mean Corpuscular Volume 87.6 fl (80-94); Mean Platelet Volume 10.2 fl (7.4-10.4); Monocytes # 0.8 K/mm3 (0.1-1.0); Monocytes % 6.2 % (1.7-9.3); Neutrophils # 9.4 K/mm3 (1.8-7.8); Neutrophils % 74.9 % (37.0-80.0); Platelet Count 336 K/mm3 (142-424); Red Blood Count 4.93 M/mm3 (4.60-6.20); Red Cell Distribution Width 14.6 % (11.5-17.5); White Blood Count 12.5 K/mm3 (4.8-10.8)
[2024-09-29 09:14] LABS: Albumin Level 3.4 g/dl (3.5-5.0); Chloride 111 mmol/L (98-107); Potassium 3.5 mmoL/L (3.5-5.1); Sodium 145 mmol/L (136-145)
[2024-09-29 09:16] LABS: Blood Urea Nitrogen 40 mg/dl (9-20); Creatinine Clearance Estimated 56 mL/min (50-200); Estimated Glomerular Filt Rate 75 ml/min (>60); GFR (African American) 91 ML/MIN (>60)
[2024-09-29 09:17] LABS: Alanine Aminotransferase 38 U/L (12-78); Albumin/Globulin Ratio 1.3 (1.1-1.8); Alkaline Phosphatase 61 U/L (38-126); Anion Gap 6.5 mEq/L (5-15); Aspartate Amino Transferase 60 U/L (17-59); Bilirubin,Total 0.7 mg/dl (0.2-1.3); Calcium 9.6 mg/dl (8.4-10.2); Carbon Dioxide 31 mmol/L (22.0-30.0); Globulin 2.6 g/dL (1.3-3.2); Glucose 88 mg/dl (74-100); Magnesium 2.3 mg/dl (1.6-2.3)
[2024-09-29] MEDS: clonazePAM 1MG TABLET 1 MG PO (09:44)
[2024-09-29] MEDS: QUETIAPINE 25MG TABLET 25 MG PO (09:44)
[2024-09-29] MEDS: QUETIAPINE 100MG TABLET 100 MG PO (09:44)
[2024-09-29] MEDS: GABAPENTIN 400MG CAPSULE 400 MG PO (09:44)
[2024-09-29] MEDS: ASPIRIN EC 81MG TABLET 81 MG PO (09:44)
[2024-09-29] MEDS: DOXYCYCLINE HYCLATE 100 MG in 0.9 % SODIUM CHLORIDE 250 ML 166.667 MG IV (10:18)
[2024-09-29] MEDS: CEFTRIAXONE SODIUM 1 GM in 0.9 % SODIUM CHLORIDE 50 ML IV (10:18)
[2024-09-29] MEDS: PROPRANOLOL 20MG TAB 20 MG PO (10:19)
--- NOTE | 2024-09-29 10:55 | P.DS_ITS ---
General Admission date:: 09/28/24 Discharge date: 09/29/24 HPI HPI HPI: 63-year-old with past medical history of Bipolar, dysphagia oral phase, COPD, hyperlipidemia, ADHD, GERD, anxiety, hypertension, history of remote myocardial infarction. PT presents with altered mental status, decreased energy level. Patient presents from [facility], [place] with decreased energy level and altered mental status. Patient noted to have sodium level 155 upon arrival to this institution. Patient given 1 L LR in emergency room, with sodium level falling to 146. Patient also reportedly lethargic and unable to eat/take meds at alf overnight. After receiving LR in emergency room, patient reportedly more reactive, and cooperative with staff. Patient nonverbal at baseline. Denies pain. Patient presented with sodium level 155, white blood count 15.6, and lactic acid level of 5.5. Patient admitted for hyponatremia, leukocytosis, and lactic acidosis. Hospital Course Hospital Course Hospital Course: 63-year-old with past medical history of Bipolar, dysphagia oral phase, COPD, hyperlipidemia, ADHD, GERD, anxiety, hypertension, history of remote myocardial infarction. PT presents with altered mental status, decreased energy level. Patient presented with sodium level 155, white blood count 15.6, and lactic acid level of 5.5. Patient admitted for hyponatremia, leukocytosis, and lactic acidosis. Has shown improvement and normalization in his electrolytes and sodium with improvement in kidney function. White count improving. Found to have pneumonia. Patient still electing not to eat intermittently. Had extensive discussion with , open to considering hospice if patient does not show improvement. Would recommend further discussion at alf about palliative/hospice care. Problems addressed as follows: Hypernatremia secondary to dehydration: ? Patient presented with sodium of 155, improved to 145 during course of hospitalization with fluid resuscitation IV and p.o. nutrition. Patient intermittently eating but refusing intermittently his meds and nutrition as well. This appears to be a choice. He has capacity to swallow. Family clear that they do not want to pursue feeding tube for nutrition. Discussed his nutritional needs, water needs, and medication needs. Expressed my concerns to patient's about his condition likely recurring if he does not take nutrition regularly. Recommend further discussion at nursing facility about goals of care. Patient reportedly has been on hospice several years ago. She is open to palliative/hospice if he continues not to eat. Pneumonia Leukocytosis -CT of chest obtained showing left lower and middle lobe airspace disease. Initiated on IV antibiotics with Rocephin and doxycycline. Remained stable on room air during hospitalization. Will transition to oral Augmentin to complete empiric course of therapy for pneumonia. White count improving, 15 on admission, 12 at day of discharge. loc: Secondary to dehydration. Creatinine 2 on admission. BUN elevated at 53. Improved to BUN of 40 and creatinine of 1 with fluid resuscitation. Electrolytes normal with potassium 3.5, magnesium 2.3. Recommend repeat CBC, CMP, magnesium in 1 week to monitor stability of kidney function and electrolytes. Biopolar: Continue home quetiapine 125 mg p.o. daily Anxiety: Klonopin 1 mg p.o. twice daily History of myocardial infarction: Aspirin 81 mg p.o. daily Chronic neuropathic pain: Resume home gabapentin 400 mg p.o. twice daily Total time spent on discharge 32 minutes in counseling, documentation, chart review, and direct care with patient. Exam Data for Last 24 hours Vital signs and Labs for Last 24 Hours: Temp Pulse Resp BP Pulse Ox O2 Del Method 97.8 F 86 17 120/73 96 Room Air 09/29/24 08:00 09/29/24 08:00 09/29/24 08:00 09/29/24 08:00 09/29/24 08:00 09/29/24 08:00 Laboratory Results - last 24 hr 09/28/24 08:10: SARS-CoV-2 (PCR) Not detected, Influenza Type A (PCR) Not detected, Influenza Type B (PCR) Not detected, RSV (PCR) Not detected, Rhinovirus (PCR) Not detected 09/28/24 15:31: Sodium 152 H*, Potassium 3.8, Chloride 115 H, Carbon Dioxide 31 H, Anion Gap 9.8, BUN 52 H, Creatinine 1.30 H D, Estimated Creat Clear 43, Estimated GFR 55 L, Est GFR ( Amer) 67 D, Glucose 97 D, Calcium 9.6 09/28/24 18:29: Urine Color Dark yellow, Urine Appearance Clear, Urine pH 6.0, Ur Specific [place] 1.020, Urine Protein Trace, Urine Glucose (UA) Negative, Urine Ketones Negative, Urine Blood Negative, Urine Nitrate Negative, Urine Bilirubin Negative, Urine Urobilinogen 1.0, Ur Leukocyte Esterase Negative, Urine RBC None, Urine WBC Occasional, Ur Squamous Epith Cells None, Urine Lizeth teria Trace 09/29/24 08:23: WBC 12.5 H, RBC 4.93, Hgb 14.2, Hct 43.2, MCV 87.6, MCH 28.8, MCHC 32.9, RDW 14.6, Plt Count 336 D, MPV 10.2, Neut % (Auto) 74.9, Lymph % (Auto) 16.3, [place] % (Auto) 6.2, Eos % (Auto) 1.3, Baso % (Auto) 0.9, Neut # (Auto) 9.4 H, Lymph # (Auto) 2.0, [place] # (Auto) 0.8, Eos # (Auto) 0.2, Baso # (Auto) 0.1, Sodium 145, Potassium 3.5, Chloride 111 H, Carbon Dioxide 31 H, Anion Gap 6.5, BUN 40 H, Creatinine 1.00 D, Estimated Creat Clear 56, Estimated GFR 75, Est GFR ( Amer) 91 D, Glucose 88, Lactate 1.9, Calcium 9.6, Magnesium 2.3, Total Bilirubin 0.7, AST 60 H D, ALT 38 D, Alkaline Phosphatase 61, Total Protein 6.0 L D, Albumin 3.4 L D, Globulin 2.6, Albumin/Globulin Ratio 1.3 I & O for Last 24 hours: Intake & Output 09/26/24 09/27/24 09/28/24 09/29/24 23:59 23:59 23:59 23:59 Intake Total 1583 / 1583 0 / 0 Output Total 0 / 0 0 / 0 Balance 1583 / 1583 0 / 0 Weight 54 kg 54 kg Microbiology Reports for the Last 24 Hours: Microbiology 09/28/24 10:18 Blood Blood Culture - Preliminary NO GROWTH AFTER 24 HOURS 09/28/24 08:13 Blood Blood Culture - Preliminary NO GROWTH AFTER 24 HOURS Constitutional Constitutional: no acute distress, cachectic and chronically ill appearing *Routine HEENT Exam Head: Present normocephalic Eye: Present EOMI and PERRL ENT: Present mucous membranes moist *Routine Neck Exam Neck: Present supple; Absent lymphadenopathy *Routine Respiratory Exam Respiratory: Present CTA bilaterally *Routine Cardiovascular Exam Cardiovascular: Present RRR *Routine Abdominal Exam Abdominal: Present soft and normoactive bowel sounds; Absent tenderness *Routine Rectal Exam Patient deferred: visual exam *Routine Exam Patient deferred: penile exam *Routine Extremities Exam Extremities: Absent cyanosis, clubbing or edema Comments: Sarcopenia *Routine Skin Exam Skin: Present warm; Absent rash *Routine Neurological Exam Neurological: Present alert Comments: Baseline mentation, nonverbal, appears confused. Intermittently follows di rections Results Data Completed and Pending Labs on day of discharge: Labs from last 24 hours 09/29/24 09/28/24 09/28/24 08:23 18:29 15:31 WBC 12.5 H RBC 4.93 Hgb 14.2 Hct 43.2 MCV 87.6 MCH 28.8 MCHC 32.9 RDW 14.6 Plt Count 336 D MPV 10.2 Neut % (Auto) 74.9 Lymph % (Auto) 16.3 [place] % (Auto) 6.2 Eos % (Auto) 1.3 Baso % (Auto) 0.9 Neut # (Auto) 9.4 H Lymph # (Auto) 2.0 [place] # (Auto) 0.8 Eos # (Auto) 0.2 Baso # (Auto) 0.1 Sodium 145 152 H* Potassium 3.5 3.8 Chloride 111 H 115 H Carbon Dioxide 31 H 31 H Anion Gap 6.5 9.8 BUN 40 H 52 H Creatinine 1.00 D 1.30 H D Estimated Creat Clear 56 43 Estimated GFR 75 55 L Est GFR ( Amer) 91 D 67 D Glucose 88 97 D Lactate 1.9 Calcium 9.6 9.6 Magnesium 2.3 Total Bilirubin 0.7 AST 60 H D ALT 38 D Alkaline Phosphatase 61 Total Protein 6.0 L D Albumin 3.4 L D Globulin 2.6 Albumin/Globulin Ratio 1.3 Urine Color Dark yellow Urine Appearance Clear Urine pH 6.0 Ur Specific [place] 1.020 Urine Protein Trace Urine Glucose (UA) Negative Urine Ketones Negative Urine Blood Negative Urine Nitrate Negative Urine Bilirubin Negative Urine Urobilinogen 1.0 Ur Leukocyte Esterase Negative Urine RBC None Urine WBC Occasional Ur Squamous Epith Cells None Urine Bacteria Trace SARS-CoV-2 (PCR) Influenza Type A (PCR) Influenza Type B (PCR) RSV (PCR) Rhinovirus (PCR) 09/28/24 08:10 WBC RBC Hgb Hct MCV MCH MCHC RDW Plt Count MPV Neut % (Auto) Lymph % (Auto) [place] % (Auto) Eos % (Auto) Baso % (Auto) Neut # (Auto) Lymph # (Auto) [place] # (Auto) Eos # (Auto) Baso # (Auto) Sodium Potassium Chloride Carbon Dioxide Anion Gap BUN Creatinine Estimated Creat Clear Estimated GFR Est GFR ( Amer) Glucose Lactate Calcium Magnesium Total Bilirubin AST ALT Alkaline Phosphatase Total Protein Albumin Globulin Albumin/Globulin Ratio Urine Color Urine Appearance Urine pH Ur Specific [place] Urine Protein Urine Glucose (UA) Urine Ketones Urine Blood Urine Nitrate Urine Bilirubin Urine Urobilinogen Ur Leukocyte Esterase Urine RBC Urine WBC Ur Squamous Epith Cells Urine Bacteria SARS-CoV-2 (PCR) Not detected Influenza Type A (PCR) Not detected Influenza Type B (PCR) Not detected RSV (PCR) Not detected Rhinovirus (PCR) Not detected Preliminary micro results at discharge 09/28/24 10:18 Blood Culture - Preliminary Blood NO GROWTH AFTER 24 HOURS 09/28/24 08:13 Blood Culture - Preliminary Blood NO GROWTH AFTER 24 HOURS DS: Diagnosis Discharge Diagnosis (1) Anxiety: Status: Acute Code(s): F41.9 - Anxiety disorder, unspecified (2) Hypernatremia: Status: Acute Code(s): E87.0 - Hyperosmolality and hypernatremia (3) Drug withdrawal: Status: Acute Code(s): F19.939 - Other psychoactive substance use, unspecified with withdrawal, unspecified (4) Lactic acidosis: Status: Acute Code(s): E87.20 - Acidosis, unspecified (5) LOC (acute kidney injury): Status: Acute Code(s): N17.9 - Acute kidney failure, unspecified (6) Leukocytosis: Status: Acute Code(s): D72.829 - Elevated white blood cell count, unspecified Meds Home Medications and Allergies Home Medications ?Medication ?Instructions ?Recorded ?Confirmed ?Type acetaminophen 500 mg capsule 500 mg PO Q6HP PRN Mild Pain 12/08/22 09/28/24 History (Scale Score 1-4) aluminum-mag hydroxide-simethicone 30 ml PO BID 12/08/22 09/28/24 History 200 mg-200 mg-20 mg/5 mL oral susp (Elis-Lanta) aspirin 81 mg tablet,delayed 81 mg PO DAILY 12/08/22 09/28/24 History release clonazepam 1 mg tablet 1 mg PO BID 12/08/22 09/28/24 History gabapentin 400 mg capsule 400 mg PO BID 12/08/22 09/28/24 History propranolol 10 mg tablet 20 mg PO AC 12/08/22 09/28/24 History quetiapine 100 mg tablet (Seroquel) 100 mg PO BID 12/08/22 09/28/24 History sennosides 8.6 mg capsule (senna) 17.2 mg PO HS 12/08/22 09/28/24 History lactulose 10 gram/15 mL oral 10 g PO DAILY PRN Constipation 09/28/24 09/28/24 History solution (Enulose) mirtazapine 7.5 mg tablet 7.5 mg PO HS 09/28/24 09/28/24 History multivitamin 1 tab PO DAILY 09/28/24 09/28/24 History omeprazole 20 mg capsule,delayed 20 mg PO HS 09/28/24 09/28/24 History release quetiapine 25 mg tablet 25 mg PO DAILY 09/28/24 09/28/24 History amoxicillin 875 mg-potassium 1 tab PO BID 5 days #10 tabs 09/29/24 Rx clavulanate 125 mg tablet New Prescriptions to Start Prescriptions: amoxicillin-pot clavulanate Ismael Robles Allergies Allergy/AdvReac Type Severity Reaction Status Date / Time ibuprofen Allergy Verified 01/26/23 14:06 Discharge Plan Disposition Patient Disposition: [facility] Inter[facility] Condition: Undetermined Discharge Order Discharge Orders: Discharge Order (Routine); Ordered 09/29/24 Ordered By: Ismael Robles Follow up Plan Prescriptions/Medication Reconciliation: New amoxicillin-pot clavulanate 875-125 mg tablet 1 tab PO BID 5 Days Qty: 10 0RF Continued aspirin 81 mg tablet,delayed release (DR/EC) 81 mg PO DAILY senna 8.6 mg capsule 17.2 mg PO HS quetiapine [Seroquel] 100 mg tablet 100 mg PO BID clonazepam 1 mg tablet 1 mg PO BID gabapentin 400 mg capsule 400 mg PO BID alum-mag hydroxide-simeth [Elis-Lanta] 200-200-20 mg/5 mL suspension 30 ml PO BID Rx Instructions: give 30 min before morning and evening meal propranolol 10 mg tablet 20 mg PO AC acetaminophen 500 mg capsule 500 mg PO Q6HP PRN (Reason: Mild Pain (Scale Score 1-4)) multivitamin Tablet 1 tab PO DAILY quetiapine 25 mg tablet 25 mg PO DAILY omeprazole 20 mg Capsule,Delayed Release(Dr/Ec) 20 mg PO HS mirtazapine 7.5 mg tablet 7.5 mg PO HS lactulose [Enulose] 10 gram/15 mL Solution 10 g PO DAILY PRN (Reason: Constipation) Problem Reconciliation Problems Reviewed?: Yes Patient Discharge Instructions ACTIVITY: Continue current activity DIET: continue same diet Patient Instructions: Acute Kidney Injury, DI for Hypernatremia, DI for Acute Kidney Injury Print Language: Estonian Providers Primary Care Provider: Provider,Referral Admit Provider: Stan Ugalde Attending Provider: Stan Ugalde
== END 2024-09-29 13:36 ==
LOC: ER 06:28 → 2ND 06:42
PROVIDERS: Internal Medicine Adolescent Medicine; Admitting Provider Internal Medicine; Emergency Provider Emergency Medicine; Visit Provider Internal Medicine
DX: R41.82 Altered mental status, unspecified (principal); Z87.820 Personal history of traumatic brain injury; Y92.128 Other place in nursing home as the place of occurrence of the external cause; Z91.128 Patient's intentional underdosing of medication regimen for other reason; T43.026A Underdosing of tetracyclic antidepressants, initial encounter; T43.596A Underdosing of other antipsychotics and neuroleptics, initial encounter; T42.4X6A Underdosing of benzodiazepines, initial encounter; Z91.118 Patient's noncompliance with dietary regimen for other reason; F50.89 Other specified eating disorder; T42.6X6A Underdosing of other antiepileptic and sedative-hypnotic drugs, initial encounter; F41.9 Anxiety disorder, unspecified; E87.0 Hyperosmolality and hypernatremia; F19.939 Other psychoactive substance use, unspecified with withdrawal, unspecified; E87.20 Acidosis, unspecified; N17.9 Acute kidney failure, unspecified; D72.829 Elevated white blood cell count, unspecified; Z79.899 Other long term (current) drug therapy; I25.2 Old myocardial infarction; I10 Essential (primary) hypertension; E43 Unspecified severe protein-calorie malnutrition; Z68.1 Body mass index [BMI] 19.9 or less, adult; E86.0 Dehydration; J18.9 Pneumonia, unspecified organism; R45.1 Restlessness and agitation; F99 Mental disorder, not otherwise specified
CPT/HCPCS: 36415; 70450; 71045; 71260; 80048; 80053; 81001; 82803; 83605; 83735; 84295; 85007; 85025; 85027; 85610; 87040; 87389; 87631; 99285; G0378; J0696; J1650; J2060; J7060; J7120; J7620; Q9967